=== PATIENT | female | born 1945 | race Caucasian/White ===

== ENCOUNTER 2016-08-25 11:33 | Inpatient (IN) | payer MEDICARE ==
[2016-08-25] VITALS (9 sets, daily range): BP systolic 111–167; BP diastolic 59–93; PULSE 94–102; RESP 16–24; TEMP 98.1–98.6; O2SAT 89–98
[~2016-08-25] VITALS: Ht 170.2 cm; Wt 87.1 kg
[~2016-08-25 11:33] MED LIST: SYMB160A INH
--- NOTE | 2016-08-25 12:12 | PD ---
HPI Chief Complaint: Fever Time Seen by Provider: 12:07 Travel History International Travel<30 days: No Contact w/Intl Traveler<30days: No Traveled to known affect area: No History of Present Illness HPI 71-year-old female presents with cough and congestion and general ill feeling intermittently since May. Dr. richardson did a sputum culture and she got results that staph was present so she was placed on Bactrim. She had an allergic reaction with a rash so she was switched to ciprofloxacin. She just started ciprofloxacin yesterday and has had 3 doses. She states that today she spiked a fever of 102 so she called the webbing inspector assembler and tester electronics who advised her to come to the emergency room. She states that she's feeling worse. She states no other concurrent complaints. She states she feels worse when she moves around. She denies other modifying factors. She states her most recent acute illness has been ever since she went to the doctor on Saturday. She denies increased use in her inhaler for her asthma. She states she follows with Dr. richardson because of the intermittent colds and her asthma. PFSH Past Medical History Narrative Medical mast cell disorder COPD: Yes Past Surgical History Tonsillectomy: Yes Other Surgery: Yes (hernia, laminectomy l2-s1) Social History Alcohol Use: Yes (occ wine) Tobacco Use: No (quit mulitple years ago) Substance Use: No Allergies-Medications (Allergen,Severity, Reaction): Coded Allergies: No Known Allergies (Unverified , 08/25/16) Reported Meds & Prescriptions Reported Meds & Active Scripts Active Reported Valtrex (Valacyclovir HCl) 1 Gm Tab 2,000 Mg PO BID Symbicort Inh (Budesonide/Formoterol Fumarate) 160-4.5 Mcg/Act Aero 1 Puff INH Q12HR Coq-10 (Coenzyme Q10 (Ubidecarenone)) Unknown Strength Cap Unknown Dose Aspirin 81 Mg Tabdr 81 Mg PO DAILY Cipro (Ciprofloxacin HCl) Unknown Strength Tab 500 PO BID Zetia (Ezetimibe) 10 Mg Tab 20 Mg PO DAILY Hydrocodone-Acetaminophen 5-325 mg Tab 1 Tab PO Q4H PRN Review of Systems Except as stated in HPI: all other systems reviewed are Neg Physical Exam Narrative GENERAL: Well-nourished, well-developed patient. SKIN: Warm and dry. HEAD: Normocephalic and atraumatic. EYES: No injection or drainage. ENT: No nasal drainage noted. NECK: Supple, trachea midline. CARDIOVASCULAR: Regular rate and rhythm RESPIRATORY: Decreased aeration bilaterally. No accessory muscle use. EXTREMITIES: No edema. NEUROLOGICAL: Awake and alert. Motor and sensory grossly within normal limits. Normal speech. Data Data Last Documented VS Vital Signs Date Time Temp Pulse Resp B/P Pulse Ox O2 Delivery O2 Flow Rate FiO2 08/25/16 12:44 94 Nasal Cannula 2.00 08/25/16 12:00 96 22 130/76 08/25/16 11:35 98.1 89 on room air Orders Complete Blood Count With Diff (08/25/16 11:54) Comprehensive Metabolic Panel (08/25/16 11:54) Prothrombin Time / Inr (Pt) (08/25/16 11:54) Act Partial Throm Time (Ptt) (08/25/16 11:54) Lactic Acid Sepsis Protocol (08/25/16 11:54) Magnesium (Mg) (08/25/16 11:54) Phosphorus (Po4) (08/25/16 11:54) Urinalysis - C+S If Indicated (08/25/16 11:54) Influenzae A/B Antigen (08/25/16 11:54) Blood Culture (08/25/16 11:54) Chest, Pa & Lat (08/25/16 11:54) Ecg Monitoring (08/25/16 11:54) Iv Access Insert/Monitor (08/25/16 11:54) Oximetry (08/25/16 11:54) Methylprednisolone So Succ Inj (Solumedr (08/25/16 12:15) Albuterol-Ipratropium Neb (Duoneb Neb) (08/25/16 12:15) Sodium Chlorid 0.9% 500 Ml Inj (Ns 500 M (08/25/16 12:30) Ceftriaxone Inj (Rocephin Inj) (08/25/16 12:45) Azithromycin Inj (Zithromax Inj) (08/25/16 12:45) Vancomycin Inj (Vancomycin Inj) (08/25/16 12:45) Albuterol-Ipratropium Neb (Duoneb Neb) (08/25/16 13:00) Oseltamivir (Tamiflu) (08/25/16 13:30) Sputum Culture And Gram Stain (08/25/16 13:20) Admit Order (Ed Use Only) (08/25/16 13:22) Sodium Chlor 0.9% 1000 Ml Inj (Ns 1000 M (08/25/16 13:22) Sodium Chloride 0.9% Flush (Ns Flush) (08/25/16 13:30) Sodium Chloride 0.9% Flush (Ns Flush) (08/25/16 21:00) Ceftriaxone Inj (Rocephin Inj) (08/25/16 13:30) Azithromycin Inj (Zithromax Inj) (08/25/16 13:30) Vancomycin Inj (Vancomycin Inj) (08/25/16 13:30) Oseltamivir (Tamiflu) (08/25/16 13:30) Albuterol-Ipratropium Neb (Duoneb Neb) (08/25/16 16:00) Albuterol-Ipratropium Neb (Duoneb Neb) (08/25/16 13:30) Methylprednisolone So Succ Inj (Solumedr (08/25/16 13:30) Admit To Inpatient (08/25/16 ) Vital Signs (Adult) Q4H (08/25/16 13:22) Activity Oob With Assistance PRN (08/25/16 13:22) ^ Notify Parameters (08/25/16 13:22) Intake + Output Q8H (08/25/16 13:22) ^ Smoking Cessation Counseling (08/25/16 13:22) Diet Heart Healthy (08/25/16 Lunch) Basic Metabolic Panel (Bmp) (08/26/16 06:00) Consult Pulmonology (08/25/16 ) Heparin Inj (Heparin Inj) (08/25/16 13:30) Inpatient Certification (08/25/16 ) Aspirin Ec (Ecotrin Ec) (08/26/16 09:00) Budeson-Formot 160-4.5 Mg Inh (Symbicort (08/25/16 21:00) Ezetimibe (Zetia) (08/26/16 09:00) Acetamin-Hydrocod 325-5 Mg ([place] 5-325 (08/25/16 13:30) Valacyclovir (Valtrex) (08/25/16 21:00) Labs Laboratory Tests Test 08/25/16 12:00 White Blood Count 4.7 TH/MM3 Red Blood Count 4.51 MIL/MM3 Hemoglobin 13.9 GM/DL Hematocrit 40.7 % Mean Corpuscular Volume 90.2 FL Mean Corpuscular Hemoglobin 30.8 PG Mean Corpuscular Hemoglobin 34.1 % Concent Red Cell Distribution Width 13.8 % Platelet Count 147 TH/MM3 Mean Platelet Volume 8.3 FL Neutrophils (%) (Auto) 75.0 % Lymphocytes (%) (Auto) 11.4 % Monocytes (%) (Auto) 11.5 % Eosinophils (%) (Auto) 1.3 % Basophils (%) (Auto) 0.8 % Neutrophils # (Auto) 3.6 TH/MM3 Lymphocytes # (Auto) 0.5 TH/MM3 Monocytes # (Auto) 0.5 TH/MM3 Eosinophils # (Auto) 0.1 TH/MM3 Basophils # (Auto) 0.0 TH/MM3 CBC Comment DIFF FINAL Differential Comment Prothrombin Time 10.2 SEC Prothromb Time International 0.9 RATIO Ratio Activated Partial 30.9 SEC Thromboplast Time Sodium Level 137 MEQ/L Potassium Level 3.7 MEQ/L Chloride Level 106 MEQ/L Carbon Dioxide Level 23.8 MEQ/L Anion Gap 7 MEQ/L Blood Urea Nitrogen 10 MG/DL Creatinine 0.81 MG/DL Estimat Glomerular Filtration 70 ML/MIN Rate Random Glucose 99 MG/DL Lactic Acid Level 1.0 mmol/L Calcium Level 8.4 MG/DL Phosphorus Level 2.7 MG/DL Magnesium Level 2.4 MG/DL Total Bilirubin 0.5 MG/DL Aspartate Amino Transf 40 U/L (AST/SGOT) Alanine Aminotransferase 58 U/L (ALT/SGPT) Alkaline Phosphatase 68 U/L Total Protein 7.9 GM/DL Albumin 3.9 GM/DL [facility] Medical Decision Making Medical Screen Exam Complete: Yes Emergency Medical Condition: Yes Medical Record Reviewed: Yes (past history confirm, prior PFTs reviewed) Interpretation(s) CBC & BMP Diagram 08/25/16 12:00 Last 24 hours Impressions Chest X-Ray 08/25/16 0244 Signed Impressions: Service Date/Time: Thursday, August 25, 2016 12:34 - CONCLUSION: Mild left base atelectasis. Darrel Fernandez MD Given recent fever left base is likely beginnings of pneumonia Differential Diagnosis COPD exacerbation, renal failure, pneumonia, URI, sepsis Narrative Course Will check blood work, chest x-ray, influenza and dose with DuoNeb's, Solu- Medrol and IV fluid hydration and reevaluate On recheck with improved aeration Will repeat neb for wheezing and admit to the hospital for further care. Patient updated and agrees to plan of care flu is A+, will add tamiflu to meds Physician Communication Physician Communication dr david agrees to admit Diagnosis Primary Impression: COPD exacerbation Additional Impression: Influenza A Admitting Information Admitting Physician Requests: Admit Stephanie Bravo MD Aug 25, 2016 12:12
[2016-08-25] MEDS ORDERED: methylPREDNISolone SOD SUCC 125 MG/2 ML VIAL IVP ONE (12:15)
[2016-08-25] MEDS ORDERED: ZETI10TA5 PO (12:18)
[2016-08-25] MEDS ORDERED: CIPR250T52 PO (12:18)
[2016-08-25] MEDS ORDERED: COQ-30CA2 (12:19)
[2016-08-25] MEDS ORDERED: ASPI1TAB69 PO (12:19)
[2016-08-25 12:28] LABS: AUTOMATED NEUTROPHIL # 3.6 TH/MM3 (1.8-7.7); BASOPHIL % 0.8 % (0.0-2.0); EOSINOPHIL # 0.1 TH/MM3 (0-0.4); EOSINOPHIL % 1.3 % (0.0-4.0); HEMATOCRIT 40.7 % (35.0-46.0); HEMO FLAGS DIFF FINAL; LYMPH % 11.4 % (9.0-44.0); LYMPHOCYTE # 0.5 TH/MM3 (1.0-4.8); MEAN CELL VOLUME 90.2 FL (80.0-100.0); MEAN CORPUSCULAR HEMOGLOBIN 30.8 PG (27.0-34.0); MEAN CORPUSCULAR HGB CONC 34.1 % (32.0-36.0); MONO % 11.5 % (0.0-8.0); PLATELET COUNT 147 TH/MM3 (150-450); RED BLOOD COUNT 4.51 MIL/MM3 (4.00-5.30); RED CELL DISTRIBUTION WIDTH 13.8 % (11.6-17.2); WHITE BLOOD COUNT 4.7 TH/MM3 (4.0-11.0)
[2016-08-25] MEDS ORDERED: SODIUM CHLORID 0.9% 500 ML INJ 500 ML IV ONE (12:30)
[2016-08-25] MEDS ORDERED: SYMB160A INH (12:31)
[2016-08-25] MEDS ORDERED: VALT1TAB PO (12:31)
[2016-08-25] MEDS ORDERED: HYDR-3516 PO (12:32)
[2016-08-25 12:37] LABS: APTT (PATIENT) 30.9 SEC (24.3-30.1); INTERNATIONAL NORMALIZED RATIO 0.9 RATIO; PROTHROMBIN TIME - PATIENT 10.2 SEC (9.8-11.6)
[2016-08-25] MEDS: RESP: ALBUTEROL 2.5 MG/IPRATROPIUM 0.5 MG NEB (SCH) INH ×4 (12:40→21:02)
[2016-08-25] MEDS ORDERED: cefTRIAXone INJ 1,000 MG in SODIUM CHLORIDE 0.9% INJ 100 ML IV ONE (12:45)
[2016-08-25] MEDS ORDERED: VANCOMYCIN INJ 1,000 MG in SODIUM CHLOR 0.9% 250 ML INJ 250 ML IV ONE ×2 (12:45→13:30)
[2016-08-25] MEDS ORDERED: AZITHROMYCIN INJ 500 MG in SODIUM CHLOR 0.9% 250 ML INJ 250 ML IV ONE (12:45)
[2016-08-25 12:48] LABS: ANION GAP 7 MEQ/L (5-15); AST (GOT) 40 U/L (15-37); BICARBONATE 23.8 MEQ/L (21.0-32.0); BLOOD UREA NITROGEN 10 MG/DL (7-18); CHLORIDE 106 MEQ/L (98-107); GLOMERULAR FILTRATION RATE 70 ML/MIN (>89); MAGNESIUM 2.4 MG/DL (1.5-2.5); POTASSIUM 3.7 MEQ/L (3.5-5.1); SODIUM (NA) 137 MEQ/L (136-145)
[2016-08-25 12:51] LABS: ALKALINE PHOSPHATASE 68 U/L (45-117); ALT (GPT) 58 U/L (10-53); TOTAL BILIRUBIN ADULT 0.5 MG/DL (0.2-1.0)
--- NOTE | 2016-08-25 12:57 | RADRPT ---
EXAM DATE/TIME: 08/25/2016 12:34 [facility] COMPARISON: No previous studies available for comparison. INDICATIONS : Cough MEDICAL HISTORY : Chronic obstructive pulmonary disease. Asthma SURGICAL HISTORY : Tonsillectomy. ENCOUNTER: Initial ACUITY: 1 day PAIN SCORE: 9/10 LOCATION: Bilateral chest FINDINGS: There is mild left base atelectasis. Right lung clear. No pleural effusion or pneumothorax on either side. Heart size within normal limits. CONCLUSION: Mild left base atelectasis. Darrel Fernandez MD on August 25, 2016 at 12:55 Board Certified Radiologist. This report was verified electronically.
[2016-08-25] MEDS ORDERED: RESP: ALBUTEROL 2.5 MG/IPRATROPIUM 0.5 MG NEB (SCH) NEB ONE (13:00)
[2016-08-25] MEDS ORDERED: SODIUM CHLORIDE 0.9% FLUSH 5 ML FLUSH IV FLUSH PRN (13:30)
[2016-08-25] MEDS ORDERED: RESP: ALBUTEROL 2.5 MG/IPRATROPIUM 0.5 MG NEB (PRN) INH (13:30)
[2016-08-25] MEDS ORDERED: OSELTAMIVIR PHOSPHATE 75 MG CAP PO ONE (13:30)
[2016-08-25] MEDS: SODIUM CHLOR 0.9% 1000 ML INJ 1,000 ML IV SCH ×2 (13:52→23:32)
--- NOTE | 2016-08-25 14:02 | HHI.HP ---
HPI Service [facility] Primary Care Physician Lanre Naidu MD Admission Diagnosis copd exacerbation, influenza A Diagnoses: Chief Complaint: sob, cough ([place] De La Vega) Travel History International Travel<30 Days: No Contact w/Intl Traveler <30 Da: No Traveled to Known Affected Are: No ([place] De La Vega) History of Present Illness This a 71-year-old female with history of mast cell disorder, fatty liver, mixed connective tissue disorder, COPD. Patient presented to the emergency room with complaints of ongoing cough and congestion and respiratory infection that has been treated since May 2016. According to the patient she started feeling in May, has been on 2-3 different antibiotics as well as oral steroids. She went to see her operations technician Dr. Church who did a sputum culture and results showed that she was growing staph therefore she was placed on Bactrim. Apparently she had some type of reaction that was in the form of a rash so she was switched to Cipro. She had 3 doses of the medication up to now. Indicates that yesterday she spiked a fever up to 102, she's had a headache, chills. She's has a cough but very little sputum. She called her operations technician who instructed her to come to the emergency room. Patient plays of generalized body aches, no chest pain, no diarrhea, no abdominal pain. She has been taking probiotics. She's not on any oxygen at home, uses inhalers. Patient presented to the emergency room, laboratory workup was completed, unremarkable. She was noted slightly tachycardic, no fever. Blood pressure stable. Sats were 89% on room air. Cultures were obtained, patient was noted positive for influenza type A. She was started on empiric antibiotics. She was given DuoNeb's and Solu-Medrol. IV fluids have been started. Patient is admitted for further evaluation and treatment ([place]ia De La Vega) Review of Systems Constitutional: COMPLAINS OF: Fatigue, Fever, Chills, DENIES: Diaphoretic episodes, Weight gain, Weight loss, Dizziness, Change in appetite, Night Sweats Endocrine: DENIES: Abnorml menstrual pattern, Heat/cold intolerance, Polydipsia , Polyuria, Polyphagia Eyes: DENIES: Blurred vision, Diplopia, Eye inflammation, Eye pain, Vision loss , Photosensitivity, Double Vision Ears, nose, mouth, throat: DENIES: Tinnitus, Hearing loss, Vertigo, Nasal discharge, Oral lesions, Throat pain, Hoarseness, Ear Pain, Running Nose, Epistaxis, Sinus Pain, Toothache, Odynophagia Respiratory: COMPLAINS OF: Cough, Wheezing, Sputum production, Shortness of breath, DENIES: Apneas, Snoring, Hemoptysis Cardiovascular: DENIES: Chest pain, Palpitations, Syncope, Dyspnea on Exertion , PND, Lower Extremity Edema, Orthopnea, Claudication Gastrointestinal: DENIES: Abdominal pain, Black stools, Bloody stools, Constipation, Diarrhea, Nausea, Vomiting, Difficulty Swallowing, Anorexia Genitourinary: DENIES: Abnormal vaginal bleeding, Dysmenorrhea, Dyspareunia, Sexual dysfunction, Urinary frequency, Urinary incontinence, Urgency, Hematuria , Dysuria, Nocturia, Vaginal discharge Musculoskeletal: DENIES: Joint pain, Muscle aches, Stiffness, Joint Swelling, Back pain, Neck pain Integumentary: COMPLAINS OF: Rash (herpes lesions on lips), DENIES: Abnormal pigmentation, Pruritus, Nail changes, Breast masses, Breast skin changes, Nipple discharge Hematologic/lymphatic: DENIES: Bruising, Lymphadenopathy Immunologic/allergic: DENIES: Eczema, Urticaria Neurologic: DENIES: Abnormal gait, Headache, Localized weakness, Paresthesias, Seizures, Speech Problems, Tremor, Poor Balance Psychiatric: DENIES: Anxiety, Confusion, Mood changes, Depression, Hallucinations, Agitation, Suicidal Ideation, Homicidal Ideation, Delusions ( [place] De La Vega) Past Family Social History Past Medical History COPD not oxygen dependent Asthma Connective tissue disorder Fatty liver, elevated liver enzymes mast cell disorder, follows up with specialist at [facility] Previous bone marrow biopsy Has had cardiac workup, had stress tests, has mild coronary artery disease. Roll Inspector is Dr. Aime Anguiano Past Surgical History Hernia Laminectomy L2 to S1 Bone marrow biopsy Stress test Reported Medications Reported Meds & Active Scripts Active Reported Valtrex (Valacyclovir HCl) 1 Gm Tab 2,000 Mg PO BID Symbicort Inh (Budesonide/Formoterol Fumarate) 160-4.5 Mcg/Act Aero 1 Puff INH Q12HR Coq-10 (Coenzyme Q10 (Ubidecarenone)) Unknown Strength Cap Unknown Dose Aspirin 81 Mg Tabdr 81 Mg PO DAILY Cipro (Ciprofloxacin HCl) Unknown Strength Tab 500 PO BID Zetia (Ezetimibe) 10 Mg Tab 20 Mg PO DAILY Hydrocodone-Acetaminophen 5-325 mg Tab 1 Tab PO Q4H PRN ([place] De [place] Vega) Allergies: Coded Allergies: Bactrim (Verified Allergy, Mild, Rash, 08/25/16) Codeine (Verified Allergy, Mild, Itching, 08/25/16) Macrobid (Verified Allergy, Mild, Nausea/Vomiting, 08/25/16) vomiting Active Ordered Medications Inpatient Medications Acetaminophen/ Hydrocodone Bitart (Dante 5-325 Mg) 1 tab Q4H PRN PO PAIN; Start 08/25/16 at 13:30; Status UNV Albuterol/ Ipratropium (Duoneb Neb) 1 ampule Q4HR NEB PRN INH SHORTNESS OF BREATH; Start 08/25/16 at 13:30 Albuterol/ Ipratropium 1 ampule 1 ampule Q15M INH Last administered on t 12:41; Start 08/25/16 at 12:15; Stop 08/25/16 at 12:31; Status DC Aspirin (Ecotrin Ec) 81 mg DAILY PO ; Start 08/26/16 at 09:00 Azithromycin 500 mg/Sodium Chloride 250 ml @ 250 mls/hr Q24H IV ; Start at 13:30; Status UNV Azithromycin/ Sodium Chloride (Zithromax Inj/ NS 250 ml Inj) 250 ml @ 250 mls/ hr ONCE ONCE IV ; Start 08/25/16 at 12:45; Stop 08/25/16 at 13:44; Status DC Budesonide/ Formoterol Fumarate (Symbicort 160-4.5 Inh) 1 puff Q12HR INH ; Start 08/25/16 at 21:00 Ceftriaxone Sodium 1000 mg/ Sodium Chloride 100 ml @ 200 mls/hr Q24H IV ; Start 08/26/16 at 13:00 EZETIMIBE (Zetia) 20 mg DAILY PO ; Start 08/26/16 at 09:00 Heparin Sodium (Porcine) (Heparin Inj) 5,000 units Q12H SQ ; Start 08/25/16 at 14:00 IV Flush (NS Flush) 2 ml UNSCH PRN IV FLUSH FLUSH AFTER USING IV ACCESS; Start 08/25/16 at 13:30 IV Flush 2 ml 2 ml BID IV FLUSH ; Start 08/25/16 at 21:00 Methylprednisolone Sodium Succinate (SoluMEDROL INJ) 40 mg Q12H IV ; Start 08/26 at 00:00 Oseltamivir Phosphate (Tamiflu) 75 mg DAILY PO ; Start 08/25/16 at 13:30; Stop 09/03/16 at 09:01; Status UNV Oseltamivir Phosphate 75 mg 75 mg ONCE ONCE PO ; Start 08/25/16 at 13:30; Stop 08/25/16 at 13:31; Status DC Sodium Chloride (NS 1000 ml Inj) 1,000 ml @ 100 mls/hr Q10H IV Last administered on 08/25/16t 13:52; Start 08/25/16 at 13:22 Valacyclovir HCl (Valtrex) 2,000 mg BID PO ; Start 08/25/16 at 21:00; Stop 08/25 at 21:00; Status DC Vancomycin HCl/ Sodium Chloride (Vancomycin Inj/ NS 250 ml Inj) 250 ml @ 250 mls/hr ONCE ONCE IV ; Start 08/25/16 at 13:30; Stop 08/25/16 at 14:29; Status UNV Family History Mother had first heart attack at age 56, at age 69 from CHF Father she doesn't know about medical history Has 2 brothers, one brother at age 58 from heart attack Another brother had heart attack at age 62 Social History Patient is , lives at home with . Has grown children. Quit smoking 20 years ago, smoked for 25 years one pack a day. Rare alcohol use. No substance abuse. Very active and exercises daily. ([place]ia De La Vega) Physical Exam Vital Signs Vital Signs Date Time Temp Pulse Resp B/P Pulse Ox O2 Delivery O2 Flow Rate FiO2 08/25/16 12:44 94 Nasal Cannula 2.00 08/25/16 12:00 96 22 130/76 89 Room Air 08/25/16 11:55 22 89 Room Air 08/25/16 11:53 16 98 Room Air 08/25/16 11:35 98.1 100 17 167/93 91 Physical Exam GENERAL: This is a well-nourished, well-developed patient, in no apparent distress. SKIN: No rashes, ecchymoses or lesions. Cool and dry. Dry scab on lip HEAD: Atraumatic. Normocephalic. No temporal or scalp tenderness. EYES: Pupils equal round and reactive. Extraocular motions intact. No scleral icterus. No injection or drainage. ENT: Nose without bleeding, purulent drainage or septal hematoma. Throat without erythema, tonsillar hypertrophy or exudate. Uvula midline. Airway patent. NECK: Trachea midline. No JVD or lymphadenopathy. Supple, nontender, no meningeal signs. CARDIOVASCULAR: Regular rate and rhythm without murmurs, gallops, or rubs. RESPIRATORY: Patient noted with faint scattered ronchi, expiratory wheezes GASTROINTESTINAL: Abdomen soft, non-tender, nondistended. No hepato-splenomegaly , or palpable masses. No guarding. MUSCULOSKELETAL: Extremities without clubbing, cyanosis, or edema. No joint tenderness, effusion, or edema noted. No calf tenderness. Negative Homans sign bilaterally. NEUROLOGICAL: Awake and alert. Cranial nerves II through XII intact. Motor and sensory grossly within normal limits. Five out of 5 muscle strength in all muscle groups. Normal speech. Laboratory Laboratory Tests Test 08/25/16 12:00 White Blood Count 4.7 Red Blood Count 4.51 Hemoglobin 13.9 Hematocrit 40.7 Mean Corpuscular Volume 90.2 Mean Corpuscular Hemoglobin 30.8 Mean Corpuscular Hemoglobin 34.1 Concent Red Cell Distribution Width 13.8 Platelet Count 147 Mean Platelet Volume 8.3 Neutrophils (%) (Auto) 75.0 Lymphocytes (%) (Auto) 11.4 Monocytes (%) (Auto) 11.5 Eosinophils (%) (Auto) 1.3 Basophils (%) (Auto) 0.8 Neutrophils # (Auto) 3.6 Lymphocytes # (Auto) 0.5 Monocytes # (Auto) 0.5 Eosinophils # (Auto) 0.1 Basophils # (Auto) 0.0 CBC Comment DIFF FINAL Differential Comment Prothrombin Time 10.2 Prothromb Time International 0.9 Ratio Activated Partial 30.9 Thromboplast Time Sodium Level 137 Potassium Level 3.7 Chloride Level 106 Carbon Dioxide Level 23.8 Anion Gap 7 Blood Urea Nitrogen 10 Creatinine 0.81 Estimat Glomerular Filtration 70 Rate Random Glucose 99 Lactic Acid Level 1.0 Calcium Level 8.4 Phosphorus Level 2.7 Magnesium Level 2.4 Total Bilirubin 0.5 Aspartate Amino Transf 40 (AST/SGOT) Alanine Aminotransferase 58 (ALT/SGPT) Alkaline Phosphatase 68 Total Protein 7.9 Albumin 3.9 Date/Time Procedure Status Source Growth 08/25/16 12:00 Aerobic Blood Culture Received Blood Peripheral Pending 08/25/16 12:00 Anaerobic Blood Culture Received Blood Peripheral Pending 08/25/16 11:50 Influenza Types A,B Antigen (JAIMEE) - Final Complete Nasal Aspirate Positive For Flu A Antigen ([place] De [place] Vega) Result Diagram: 08/25/16 1200 08/25/16 1200 Imaging Last Impressions Chest X-Ray 08/25/16 1154 Signed Impressions: Service Date/Time: Saturday, August 25, 2016 12:34 - CONCLUSION: Mild left base atelectasis. Darrel Fernandez MD ([place]) Assessment and Plan Problem List: (1) COPD exacerbation (2) Influenza A (3) Fatty liver (4) Mast cell disease (5) Hypoxia (6) Failure of outpatient treatment (7) Hx of connective tissue disease Assessment and Plan Admit to Dr. Toro 71-year-old female admitted with ongoing cough and congestion, has had respiratory infection since May. Recently put on Cipro. Admitted with new PD exacerbation, influenza, failure of outpatient therapy -Continue with empiric antibiotics, continue with Tamiflu -Follow cultures -Obtain sputum culture Consult pulmonology for evaluation -Continue with DuoNeb's Solu-Medrol 40 mg IV twice a day -Continue with Symbicort -Continue with IV fluids History of mast cell disorder Monitor for any allergic reaction Benadryl when necessary History of fatty liver, noted with mildly elevated liver enzymes -Repeat LFTs in the morning Home medications reviewed, initiated as indicated SCDs for DVT prophylaxis Plan of care discussed with the patient, attending and registered nurse. Further management of the patient will be dependent on the hospital course This patient was seen by myself and Dr. Toro, this H&P is written on his behalf ([place] De La Vega) Assessment and Plan Pt aeen and examined in detail as above chart was reviewed dw pt and at bedside dw ecommerce merchandising manager about plan of care (Erick Toro MD) Physician Certification 2 Midnight Certification Type: Admission for Inpatient Services Order for Inpatient Services The services are ordered in accordance with Medicare regulations or non- Medicare payer requirements, as applicable. In the case of services not specified as inpatient-only, they are appropriately provided as inpatient services in accordance with the 2-midnight benchmark. Estimated LOS (days): 2 2 days is the estimated time the patient will need to remain in the hospital, assuming treatment plan goals are met and no additional complications. Post-Hospital Plan: Home ([place]ia De La Vega) [place] De La Vega Aug 25, 2016 14:02 Erick Toro MD Aug 25, 2016 21:39
[2016-08-25] MEDS: HEPARIN SODIUM - SQ 10,000 UNITS/ML VIAL SQ SCH (14:25)
[2016-08-25] MEDS: ACETAMINOPHEN/HYDROcodone 325 MG/5 MG TAB PO PRN ×2 (14:52→20:56)
[2016-08-25] MEDS ORDERED: OSELTAMIVIR PHOSPHATE 75 MG CAP PO SCH (15:00)
--- NOTE | 2016-08-25 16:33 | MB ---
cc: KRISTIE FLOWERS M.D., R. STEVEN M.D. DATE OF CONSULTATION: 08/25/2016. REASON FOR CONSULTATION: COPD exacerbation. HISTORY OF PRESENT ILLNESS: Mrs. Becerra is a 71-year-old female with known history of COPD who had developed an exacerbation with cough and expectoration of whitish-yellow sputum last week and was given Bactrim therapy for which she had developed a rash and was switched to Levaquin therapy. Her says she has been feeling weak with fever up to 102 degrees Fahrenheit. She came to the emergency room and it was felt to be exacerbation of her COPD. Bronchodilator therapy has been initiated with some improvement. The patient is admitted to the hospital for same. PAST MEDICAL HISTORY: 1. COPD. SOCIAL HISTORY: Remote smoking history. No TB or industrial exposure. Drinks socially. FAMILY HISTORY: Noncontributory. REVIEW OF SYSTEMS: A twelve-point review of systems is as per the history of present illness and past history, otherwise negative. MEDICATIONS: 1. Valacyclovir. 2. Symbicort. 3. Co-Q-10. 4. Aspirin. 5. Zetia. 6. Cipro recently which she stopped. ALLERGIES: 1. CIPRO. 2. BACTRIM. FAMILY HISTORY: Noncontributory. PHYSICAL EXAMINATION: VITAL SIGNS: On exam, temperature 102 degrees Fahrenheit, pulse 80, respirations 16, blood pressure 140/70, 02 saturation 94% on room air. HEAD, EYES, EARS, NOSE, THROAT: Unremarkable. Eyes without icterus. NECK: Without adenopathy, thyroid enlargement, central trachea. CHEST: No dullness to percussion. A few scattered rhonchi on auscultation. CARDIAC: PMI distant. S1 and S2 audible. No murmur, no rub. ABDOMEN: Lax. Bowel sounds audible. EXTREMITIES: No cyanosis, clubbing or edema. SKIN: Normal. LYMPHATIC: No lymphadenopathy. LABORATORY DATA: White count 4.7, hemoglobin 13, hematocrit 40, platelets 147,000. Sodium 137, potassium 3.7, BUN 10, creatinine 0.8. INR 0.9. IMPRESSION: Exacerbation of COPD. PLAN: 1. The patient will be maintained on oxygen therapy. 2. Bronchodilator therapy. 3. Antibiotic therapy. 4. She has been started on Zithromax and ceftriaxone. 5. Continue bronchodilator therapy via nebulizations. 6. Albuterol and ipratropium. I will follow her course closely and depending on progress proceed further. I do thank you for asking me to partake in Mrs. Becerra's care. Kristie Flowers MD WWW/HERMAN /3:16 PM /4:27 PM
[2016-08-25 16:49] LABS: BLOOD, URINE NEG (NEG); GLUCOSE,URINE NEG (NEG); HYALINE CAST, URINE 1 /lpf (RARE); KETONE, URINE TRACE mg/dL (NEG); MUCUS URINE FEW /lpf (OCC); NITRITE,URINE NEG (NEG); PH, URINE 5.5 (5.0-8.5); SQUAMOUS EPITHELIAL CELL URINE 1 /hpf (0-5); URINE COLOR YELLOW (YELLW/STRAW)
[2016-08-25 16:50] LABS: COMMENT (UR) CATH-CULT NOT IND; CULTURE IF INDICATED CATH CULTURE NOT IND
[2016-08-25] MEDS: ONDANSETRON HCL 4 MG/2 ML VIAL IV PUSH PRN (17:36)
[2016-08-25] MEDS: NAPROXEN 250 MG TAB PO PRN (17:37)
[2016-08-25] MEDS: BUDESONIDE-FORMOTEROL 160/4.5 MCG INHALER INH SCH (20:55)
[2016-08-25] MEDS: SODIUM CHLORIDE 0.9% FLUSH 5 ML FLUSH IV FLUSH SCH (20:55)
[2016-08-25] MEDS ORDERED: valACYclovir HCL 500 MG TAB PO SCH (21:00)
[2016-08-25] MEDS: methylPREDNISolone SOD SUCC 40 MG/1 ML VIAL IV SCH (23:32)
[2016-08-26] VITALS (8 sets, daily range): BP systolic 106–139; BP diastolic 59–85; PULSE 77–93; RESP 18–22; TEMP 96.1–98.9; O2SAT 93–96
[2016-08-26] MEDS: HEPARIN SODIUM - SQ 10,000 UNITS/ML VIAL SQ SCH ×2 (02:26→14:21)
[2016-08-26] MEDS: ACETAMINOPHEN/HYDROcodone 325 MG/5 MG TAB PO PRN (02:29)
[2016-08-26] MEDS: RESP: ALBUTEROL 2.5 MG/IPRATROPIUM 0.5 MG NEB (SCH) INH ×4 (03:57→21:28)
[2016-08-26 06:23] LABS: BICARBONATE 22.1 MEQ/L (21.0-32.0); POTASSIUM 3.6 MEQ/L (3.5-5.1)
[2016-08-26 06:25] LABS: INDIRECT BILIRUBIN 0.2 MG/DL (0.0-0.8); TOTAL BILIRUBIN ADULT 0.3 MG/DL (0.2-1.0)
[2016-08-26] MEDS: ASPIRIN EC 81 MG TABEC PO SCH (08:20)
[2016-08-26] MEDS: EZETIMIBE 10 MG TAB PO SCH (08:20)
[2016-08-26] MEDS: BUDESONIDE-FORMOTEROL 160/4.5 MCG INHALER INH SCH ×2 (08:20→19:26)
[2016-08-26] MEDS: SODIUM CHLORIDE 0.9% FLUSH 5 ML FLUSH IV FLUSH SCH ×2 (08:21→19:26)
[2016-08-26] MEDS: SODIUM CHLOR 0.9% 1000 ML INJ 1,000 ML IV SCH ×2 (08:22→19:26)
--- NOTE | 2016-08-26 11:02 | HHI.PR ---
Subjective Remarks She still has some wheezing and some shortness of breath Some cough with very small amount of sputum No chest pain or diaphoresis No nausea vomiting Feeling some improvement from yesterday Review of system for 10 point system otherwise unremarkable Objective Objective Results - Vital Signs Date Time Temp Pulse Resp B/P Pulse Ox O2 Delivery O2 Flow Rate FiO2 08/26/16 08:46 95 Nasal Cannula 1.00 08/26/16 08:00 96.1 77 18 131/61 94 08/26/16 03:59 95 Nasal Cannula 2.00 08/26/16 00:00 98.9 93 22 106/59 93 08/25/16 20:00 98.6 99 24 138/76 95 08/25/16 17:47 95 Nasal Cannula 2.00 08/25/16 16:00 98.1 96 20 125/73 95 08/25/16 15:00 98.5 94 16 111/59 94 Nasal Cannula 2 08/25/16 14:00 102 16 145/72 98 Room Air 08/25/16 12:44 94 Nasal Cannula 2.00 08/25/16 12:00 96 22 130/76 89 Room Air 08/25/16 11:55 22 89 Room Air 08/25/16 11:53 16 98 Room Air 08/25/16 11:35 98.1 100 17 167/93 91 I/O 08/25/16 08/25/16 08/25/16 08/26/16 08/26/16 08/26/16 07:00 15:00 23:00 07:00 15:00 23:00 Intake Total 1286 ml 1077 ml Output Total 1600 ml 1600 ml Balance -314 ml -523 ml Intake Oral 480 ml 320 ml IV Total 806 ml 757 ml Output Urine Total 1600 ml 1600 ml # Bowel Movements 0 0 Result Diagram: 08/25/16 1200 08/26/16 0505 Imaging Last Impressions Chest X-Ray 08/25/16 1154 Signed Impressions: Service Date/Time: Thursday, August 25, 2016 12:34 - CONCLUSION: Mild left base atelectasis. Darrel Fernandez MD Other Results Laboratory Tests Test 08/25/16 08/25/16 08/26/16 12:00 16:15 05:05 White Blood Count 4.7 Red Blood Count 4.51 Hemoglobin 13.9 Hematocrit 40.7 Mean Corpuscular Volume 90.2 Mean Corpuscular Hemoglobin 30.8 Mean Corpuscular Hemoglobin 34.1 Concent Red Cell Distribution Width 13.8 Platelet Count 147 Mean Platelet Volume 8.3 Neutrophils (%) (Auto) 75.0 Lymphocytes (%) (Auto) 11.4 Monocytes (%) (Auto) 11.5 Eosinophils (%) (Auto) 1.3 Basophils (%) (Auto) 0.8 Neutrophils # (Auto) 3.6 Lymphocytes # (Auto) 0.5 Monocytes # (Auto) 0.5 Eosinophils # (Auto) 0.1 Basophils # (Auto) 0.0 CBC Comment DIFF FINAL Differential Comment Prothrombin Time 10.2 Prothromb Time International 0.9 Ratio Activated Partial 30.9 Thromboplast Time Sodium Level 137 143 Potassium Level 3.7 3.6 Chloride Level 106 111 Carbon Dioxide Level 23.8 22.1 Anion Gap 7 10 Blood Urea Nitrogen 10 8 Creatinine 0.81 0.85 Estimat Glomerular Filtration 70 66 Rate Random Glucose 99 155 Lactic Acid Level 1.0 Calcium Level 8.4 8.6 Phosphorus Level 2.7 Magnesium Level 2.4 Total Bilirubin 0.5 0.3 Aspartate Amino Transf 40 31 (AST/SGOT) Alanine Aminotransferase 58 50 (ALT/SGPT) Alkaline Phosphatase 68 59 Total Protein 7.9 7.5 Albumin 3.9 3.6 Urine Color YELLOW Urine Turbidity CLEAR Urine pH 5.5 Urine Specific Dorr 1.012 Urine Protein NEG Urine Glucose (UA) NEG Urine Ketones TRACE Urine Occult Blood NEG Urine Nitrite NEG Urine Bilirubin NEG Urine Urobilinogen LESS THAN 2.0 Urine Leukocyte Esterase NEG Urine RBC LESS THAN 1 Urine WBC 1 Urine Squamous Epithelial 1 Cells Urine Hyaline Casts 1 Urine Mucus FEW Microscopic Urinalysis Comment CATH-CULT NOT IND Direct Bilirubin 0.1 Indirect Bilirubin 0.2 Date/Time Procedure Status Source Growth 08/25/16 12:00 Aerobic Blood Culture Received Blood Peripheral Pending 08/25/16 12:00 Anaerobic Blood Culture Received Blood Peripheral Pending 08/25/16 11:50 Influenza Types A,B Antigen (JAIMEE) - Final Complete Nasal Aspirate Positive For Flu A Antigen Physical Exam Physical Exam GENERAL: This is a well-nourished, well-developed patient, in no apparent distress. SKIN: No rashes, ecchymoses or lesions. Cool and dry. Dry scab on lip HEAD: Atraumatic. Normocephalic. EYES: Extraocular motions intact. No scleral icterus. No injection or drainage. ENT: Airway patent. NECK: Trachea midline. Supple CARDIOVASCULAR: Regular rate and rhythm without murmurs, gallops, or rubs. RESPIRATORY: Patient noted with faint scattered ronchi, expiratory wheezes bibasally GASTROINTESTINAL: Abdomen soft, non-tender, nondistended. No hepato-splenomegaly , or palpable masses. No guarding. MUSCULOSKELETAL: Extremities without clubbing, cyanosis, or edema. No joint tenderness, effusion, or edema noted. No calf tenderness. Negative Homans sign bilaterally. NEUROLOGICAL: Awake and alert. Cranial nerves II through XII intact. Motor and sensory grossly within normal limits. Five out of 5 muscle strength in all muscle groups. Normal speech. A/P Assessment and Plan (1) COPD exacerbation (2) Influenza A (3) Fatty liver (4) Mast cell disease (5) Hypoxia (6) Failure of outpatient treatment (7) Hx of connective tissue disease Plan 71-year-old female admitted with ongoing cough and congestion, has had respiratory infection since May. Recently put on Cipro. Admitted with new coPD exacerbation, influenza, failure of outpatient therapy -Continue with empiric antibiotics, continue with Tamiflu -Follow cultures -Obtain sputum culture Consult pulmonology for evaluation -Continue with DuoNeb's Solu-Medrol 40 mg IV twice a day -Continue with Symbicort -Continue with IV fluids As the patient she had a staph on his sputum and was on Bactrim. Will keep her on the vancomycin pharmacy to dose. And follow-up sputum culture. Appreciate pulmonary input History of mast cell disorder Monitor for any allergic reaction Benadryl when necessary History of fatty liver, noted with mildly elevated liver enzymes -Repeat LFTs in the morning Home medications reviewed, initiated as indicated SCDs for DVT prophylaxis Plan of care discussed with the patient, and at bedside Further management of the patient will be dependent on the hospital course Erick Toro MD Aug 26, 2016 11:01
[2016-08-26] MEDS ORDERED: Vancomycin Consult Pharmacy 1 EA XX SCH (11:15)
[2016-08-26] MEDS: diphenhydrAMINE HCL 50 MG/ML VIAL IV PUSH PRN ×2 (12:01→18:15)
[2016-08-26] MEDS: methylPREDNISolone SOD SUCC 40 MG/1 ML VIAL IV SCH ×2 (12:02→23:09)
[2016-08-26] MEDS: cefTRIAXone INJ 1,000 MG in SODIUM CHLORIDE 0.9% INJ 100 ML IV SCH (12:02)
[2016-08-26] MEDS: VANCOMYCIN INJ 1,250 MG in SODIUM CHLOR 0.9% 250 ML INJ 250 ML IV SCH (14:21)
[2016-08-26] MEDS: AZITHROMYCIN INJ 500 MG in SODIUM CHLOR 0.9% 250 ML INJ 250 ML IV SCH (16:55)
[2016-08-26] MEDS ORDERED: TEMAZEPAM 15 MG CAP PO PRN (18:00)
[2016-08-26] MEDS ORDERED: POLYETHYLENE GLYCOL 17 GM PKG PO PRN (18:00)
[2016-08-26] MEDS: OSELTAMIVIR PHOSPHATE 75 MG CAP PO SCH (19:26)
[2016-08-27] VITALS (7 sets, daily range): BP systolic 131–162; BP diastolic 75–97; PULSE 83–91; RESP 18–22; TEMP 95.9–96.9; O2SAT 92–97
[2016-08-27] MEDS: HEPARIN SODIUM - SQ 10,000 UNITS/ML VIAL SQ SCH (03:07)
[2016-08-27] MEDS: SODIUM CHLOR 0.9% 1000 ML INJ 1,000 ML IV SCH (03:08)
[2016-08-27] MEDS: RESP: ALBUTEROL 2.5 MG/IPRATROPIUM 0.5 MG NEB (SCH) INH ×3 (03:47→19:45)
[2016-08-27] MEDS: OSELTAMIVIR PHOSPHATE 75 MG CAP PO SCH ×2 (08:23→21:18)
[2016-08-27] MEDS: ASPIRIN EC 81 MG TABEC PO SCH (08:23)
[2016-08-27] MEDS: NAPROXEN 250 MG TAB PO PRN ×2 (08:23→16:33)
[2016-08-27] MEDS: EZETIMIBE 10 MG TAB PO SCH (08:23)
[2016-08-27] MEDS: VANCOMYCIN INJ 1,250 MG in SODIUM CHLOR 0.9% 250 ML INJ 250 ML IV SCH (08:24)
[2016-08-27] MEDS: SODIUM CHLORIDE 0.9% FLUSH 5 ML FLUSH IV FLUSH SCH ×2 (08:24→21:14)
[2016-08-27] MEDS: BUDESONIDE-FORMOTEROL 160/4.5 MCG INHALER INH SCH ×2 (08:24→21:20)
--- NOTE | 2016-08-27 10:25 | HHI.PR ---
Subjective Remarks has less wheezing and less shortness of breath Cannot sleep after steroid. Sleeping medication did not help last night Some cough with very small amount of sputum No chest pain or diaphoresis No nausea vomiting Feeling some improvement from yesterday Review of system for 10 point system otherwise unremarkable Objective Objective Results - Vital Signs Date Time Temp Pulse Resp B/P Pulse Ox O2 Delivery O2 Flow Rate FiO2 08/27/16 08:00 96.6 89 18 149/97 92 08/27/16 00:00 96.9 87 22 137/78 94 08/26/16 21:29 95 08/26/16 20:00 97.5 84 22 110/82 96 08/26/16 16:00 97.6 90 18 139/85 94 08/26/16 12:00 96.4 87 18 131/68 93 I/O 08/26/16 08/26/16 08/26/16 08/27/16 08/27/16 08/27/16 07:00 15:00 23:00 07:00 15:00 23:00 Intake Total 1077 ml 1373 ml 818 ml 1494 ml Output Total 1600 ml 1200 ml 300 ml 1600 ml Balance -523 ml 173 ml 518 ml -106 ml Intake Oral 320 ml 800 ml 320 ml 480 ml IV Total 757 ml 573 ml 498 ml 1014 ml Output Urine Total 1600 ml 1200 ml 300 ml 1600 ml # Bowel Movements 0 0 0 0 Result Diagram: 08/25/16 1200 08/27/16 0522 Imaging Last Impressions Chest X-Ray 08/25/16 1154 Signed Impressions: Service Date/Time: Thursday, August 25, 2016 12:34 - CONCLUSION: Mild left base atelectasis. Darrel Fernandez MD Other Results Laboratory Tests Test 08/27/16 05:22 Creatinine 0.78 Estimat Glomerular Filtration 73 Rate Date/Time Procedure Status Source Growth 08/26/16 11:30 Gram Stain - Final Resulted Sputum Expectorated Sputum 08/26/16 11:30 Sputum Culture Resulted Sputum Expectorated Sputum Pending 08/25/16 12:00 Aerobic Blood Culture - Preliminary Resulted Blood Peripheral NO GROWTH IN 1 DAY 08/25/16 12:00 Anaerobic Blood Culture - Preliminary Resulted Blood Peripheral NO GROWTH IN 1 DAY 08/25/16 11:50 Influenza Types A,B Antigen (JAIMEE) - Final Complete Nasal Aspirate Positive For Flu A Antigen Physical Exam Physical Exam GENERAL: This is a well-nourished, well-developed patient, in no apparent distress. SKIN: No rashes, ecchymoses or lesions. Cool and dry. Dry scab on lip HEAD: Atraumatic. Normocephalic. EYES: Extraocular motions intact. No scleral icterus. No injection or drainage. ENT: Airway patent. NECK: Trachea midline. Supple CARDIOVASCULAR: Regular rate and rhythm without murmurs, gallops, or rubs. RESPIRATORY: Patient noted with occasional faint scattered ronchi, less expiratory wheezes bibasally GASTROINTESTINAL: Abdomen soft, non-tender, nondistended. No hepato-splenomegaly , or palpable masses. No guarding. MUSCULOSKELETAL: Extremities without clubbing, cyanosis, or edema. No joint tenderness, effusion, or edema noted. No calf tenderness. Negative Homans sign bilaterally. NEUROLOGICAL: Awake and alert. Cranial nerves II through XII intact. Motor and sensory grossly within normal limits. Five out of 5 muscle strength in all muscle groups. Normal speech. A/P Assessment and Plan (1) COPD exacerbation (2) Influenza A (3) Fatty liver (4) Mast cell disease (5) Hypoxia (6) Failure of outpatient treatment (7) Hx of connective tissue disease Plan 71-year-old female admitted with ongoing cough and congestion, has had respiratory infection since May. Recently put on Cipro. Admitted with new coPD exacerbation, influenza, failure of outpatient therapy -Continue with empiric antibiotics, continue with Tamiflu -Follow cultures so far negative -Obtain sputum culture pending Appreciate consultation by pulmonology for evaluation -Continue with DuoNeb's Solu-Medrol 40 mg IV will decrease to once a day -Continue with Symbicort -Continue with IV fluids As the patient she had a staph on his sputum and was on Bactrim. Will keep her on the vancomycin pharmacy to dose. And follow-up sputum culture. Appreciate pulmonary input History of mast cell disorder Monitor for any allergic reaction Benadryl when necessary History of fatty liver, noted with mildly elevated liver enzymes -Repeat LFTs better Will give different medication for insomnia Home medications reviewed, initiated as indicated SCDs for DVT prophylaxis Plan of care discussed with the patient Discussed with RN Further management of the patient will be dependent on the hospital course Erick Toro MD Aug 27, 2016 10:25
[2016-08-27] MEDS ORDERED: ZOLPIDEM TARTRATE 5 MG TAB PO PRN (10:30)
[2016-08-27] MEDS: cefTRIAXone INJ 1,000 MG in SODIUM CHLORIDE 0.9% INJ 100 ML IV SCH (13:59)
[2016-08-27] MEDS: AZITHROMYCIN INJ 500 MG in SODIUM CHLOR 0.9% 250 ML INJ 250 ML IV SCH (16:00)
[2016-08-28] MEDS: VANCOMYCIN INJ 1,250 MG in SODIUM CHLOR 0.9% 250 ML INJ 250 ML IV SCH (00:29)
[2016-08-28] MEDS ORDERED: PHARMACY ORDERED LAB XX ONE (01:45)
[2016-08-28] MEDS: RESP: ALBUTEROL 2.5 MG/IPRATROPIUM 0.5 MG NEB (SCH) INH ×2 (07:47→16:07)
[2016-08-28 08:00] VITALS: BP 163/86; PULSE 78; RESP 17; TEMP 98.1; O2SAT 95
[2016-08-28] MEDS: ASPIRIN EC 81 MG TABEC PO SCH (08:37)
[2016-08-28] MEDS: EZETIMIBE 10 MG TAB PO SCH (08:39)
[2016-08-28] MEDS: OSELTAMIVIR PHOSPHATE 75 MG CAP PO SCH (08:39)
[2016-08-28] MEDS: SODIUM CHLORIDE 0.9% FLUSH 5 ML FLUSH IV FLUSH SCH (08:40)
[2016-08-28] MEDS: BUDESONIDE-FORMOTEROL 160/4.5 MCG INHALER INH SCH (08:40)
[2016-08-28] MEDS ORDERED: methylPREDNISolone SOD SUCC 40 MG/1 ML VIAL IV SCH (09:00)
[2016-08-28] MEDS ORDERED: HEPARIN SODIUM - SQ 10,000 UNITS/ML VIAL SQ SCH (09:00)
[2016-08-28] MEDS ORDERED: predniSONE 20 MG TAB PO SCH (09:00)
[2016-08-28] MEDS ORDERED: VANCOMYCIN INJ 1,250 MG in SODIUM CHLOR 0.9% 250 ML INJ 250 ML IV SCH (10:00)
[2016-08-28] MEDS: ONDANSETRON HCL 4 MG/2 ML VIAL IV PUSH PRN (10:02)
[2016-08-28 12:00] VITALS: BP 136/81; PULSE 69; RESP 17; TEMP 98.5; O2SAT 93
[2016-08-28] MEDS: cefTRIAXone INJ 1,000 MG in SODIUM CHLORIDE 0.9% INJ 100 ML IV SCH (13:00)
--- NOTE | 2016-08-28 15:44 | HHI.PR ---
Subjective Remarks Voice clear, less hoarse Up in chair Alert Feeling much better Appetite fair to good (Roxana Stuart) Objective Objective Results - Vital Signs Date Time Temp Pulse Resp B/P Pulse Ox O2 Delivery O2 Flow Rate FiO2 08/28/16 12:00 98.5 69 17 136/81 93 08/28/16 08:00 98.1 78 17 163/86 95 08/27/16 20:00 96.7 83 20 162/92 94 08/27/16 19:48 97 Nasal Cannula 08/27/16 16:00 95.9 85 20 131/75 92 I/O 08/27/16 08/27/16 08/27/16 08/28/16 08/28/16 08/28/16 07:00 15:00 23:00 07:00 15:00 23:00 Intake Total 1494 ml 1464 ml 240 ml 120 ml 480 ml Output Total 1600 ml 700 ml 650 ml Balance -106 ml 764 ml 240 ml 120 ml -170 ml Intake Oral 480 ml 720 ml 240 ml 120 ml 480 ml IV Total 1014 ml 744 ml Output Urine Total 1600 ml 700 ml 650 ml # Voids 2 2 2 # Bowel Movements 0 2 0 0 0 (Roxana Stuart) Result Diagram: 08/25/16 1200 08/27/16 0522 ROS General: Fatigue (improving, she is moving around in the room), Other (10 point ROS done positives noted some cough shortness of breath and weakness which is all improving. Other systems negative or unremarkable) Pulmonary: Cough (occasional), SOB (with extreme activity, resolving) (Roxana Stuart) Physical Exam Physical Exam PHYSICAL EXAMINATION GENERAL: This is a well-developed, well-nourished female who appears to be in no acute distress. She is alert and awake, responsive. HEAD: Normocephalic without any lesion or mass noted. Facial features appear symmetric. OROPHARYNGEAL: Oropharynx without erythema or edema. NECK: Supple. No nuchal rigidity or lymphadenopathy. Trachea midline without deviation. CARDIAC: Regular rhythm, regular rate, S1 and S2 are heard. Murmur none; no gallops or rubs. LUNGS: Decreased breath sounds especially in the right lower lobe . Anterior and upper landis clear , no wheeze, no rhonchi or rale. No use of accessory muscles on inspiration or expiration. ABDOMEN: Soft, nontender, no organomegaly or masses. Bowel sounds are heard in all four quadrants. No rebound. No guarding. EXTREMITIES: No edema. Pulses equal bilateral. no cyanosis. Up in chair NEUROLOGICAL: Patient mood and affect appropriate. No focal deficit SKIN:Warm and moist Objective Remarks On feeling much better today I'm very much hoping to go home (Roxana Stuart) A/P Assessment and Plan 71-year-old female admitted with ongoing cough and congestion, has had respiratory infection since May. Recently put on Cipro. Admitted with new coPD exacerbation, influenza, failure of outpatient therapy -Continue with empiric antibiotics, continue with Tamiflu, flu positive -Follow cultures so far negative -Obtain sputum culture staph Appreciate consultation by pulmonology for evaluation -Continue with DuoNeb's Solu-Medrol 40 mg IV will decrease to once a day -Continue with Symbicort -Continue with IV fluids As the patient she had a staph on his sputum and was on Bactrim. Will keep her on the vancomycin pharmacy to dose. And follow-up sputum culture. Appreciate pulmonary input Off improving, no shortness of breath noted. Debility and generalized weakness resolving. Patient is able to speak without hoarseness today History of mast cell disorder Monitor for any allergic reaction Benadryl when necessary History of fatty liver, noted with mildly elevated liver enzymes -Repeat LFTs better Will give different medication for insomnia Home medications reviewed, initiated as indicated SCDs for DVT prophylaxis Plan of care discussed with the patient Patient and are in room and are very much hoping to discharge today. Dr. Umana will see. We'll need to evaluate outpatient medicines if she discharges Discharge Planning Home with Discussed With: Nurse, Family (patient and her ), Other (Dr. umana, patient seen on her behalf) (Roxana Stuart) Assessment and Plan patient seen and examined feeling much better anxious to go home po tamiflu for 2 more days switch to po ceftin cough suppressants follow up with Dr richardson in 2 weeks for repeat sputum culture ok to d/c home discussed with patient / at bedside discussed with Roxana PINEDA (Sarahy Umana MD) Roxana Stuart Aug 28, 2016 15:44 Sarahy Umana MD Aug 28, 2016 16:36
[2016-08-28 16:07] VITALS: O2SAT 93
[2016-08-28] MEDS ORDERED: CEFT500T3 PO (16:23)
[2016-08-28] MEDS ORDERED: OSEL75 PO (16:23)
--- NOTE | 2016-08-28 18:37 | HHI.DS ---
Discharge Summary Admission Date Aug 25, 2016 at 13:24 Discharge Date: Aug 28, 2016 Admitting Diagnosis copd exacerbation, influenza A (1) COPD exacerbation Diagnosis: Principal (2) Influenza A Diagnosis: Principal (3) Fatty liver Diagnosis: Secondary (4) Mast cell disease Diagnosis: Secondary (5) Hypoxia Diagnosis: Principal (6) Failure of outpatient treatment Diagnosis: Principal (7) Hx of connective tissue disease Diagnosis: Secondary Brief History This was a 71-year-old female with history of mast cell disorder, fatty liver, mixed connective tissue disorder, COPD. Patient presented to the emergency room with complaints of ongoing cough and congestion and respiratory infection that has been treated since May 2016. According to the patient she started feeling in May, had been on 2-3 different antibiotics as well as oral steroids. She went to see her handle maker Dr. Church who did a sputum culture and results showed that she was growing staph therefore she was placed on Bactrim. Apparently she had some type of reaction that was in the form of a rash so she was switched to Cipro. She had 3 doses of the medication up to now. Indicates that day before admission she spiked a fever up to 102, she's had a headache, chills. She's had a cough but very little sputum. She called her handle maker who instructed her to come to the emergency room. Patient complained of generalized body aches, no chest pain, no diarrhea, no abdominal pain. She had been taking probiotics. She's not on any oxygen at home, uses inhalers. CBC/BMP: 08/25/16 1200 08/27/16 0522 Significant Findings Laboratory Tests Test 08/26/16 08/27/16 05:05 05:22 Chloride Level 111 MEQ/L (98-107) Estimat Glomerular Filtration 66 ML/MIN (>89) 73 ML/MIN (>89) Rate Random Glucose 155 MG/DL (74-106) PE at Discharge GENERAL: This was a well-developed, well-nourished female who appeared to be in no acute distress. She was alert and awake, responsive. HEAD: Normocephalic without any lesion or mass noted. Facial features appear symmetric. OROPHARYNGEAL: Oropharynx without erythema or edema. NECK: Supple. No nuchal rigidity or lymphadenopathy. Trachea midline without deviation. CARDIAC: Regular rhythm, regular rate, S1 and S2 are heard. Murmur none; no gallops or rubs. LUNGS: Decreased breath sounds especially in the right lower lobe . Anterior and upper landis clear , no wheeze, no rhonchi or rale. No use of accessory muscles on inspiration or expiration. ABDOMEN: Soft, nontender, no organomegaly or masses. Bowel sounds are heard in all four quadrants. No rebound. No guarding. EXTREMITIES: No edema. Pulses equal bilateral. no cyanosis. Up in chair NEUROLOGICAL: Patient mood and affect appropriate. No focal deficit SKIN:Warm and moist Objective Remarks On feeling much better today I'm very much hoping to go home Hospital Course Patient presented to the emergency room, laboratory workup was completed, unremarkable. She was noted slightly tachycardic, no fever. Blood pressure stable. Sats were 89% on room air. Cultures were obtained, patient was noted positive for influenza type A. She was started on empiric antibiotics. She was given DuoNeb's and Solu-Medrol. IV fluids have been started. Patient is admitted for further evaluation and treatment Patient's diagnosis listed at the top of the page were the primary and secondary things used for her treatment plan during her hospital stay. -Continue with empiric antibiotics, continue with Tamiflu, flu positive Patient was-Followed with cultures so far negative -Obtain sputum culture which was positive for staph Appreciate consultation by pulmonology for evaluation -Continue with DuoNeb's throughout hospital stay Solu-Medrol 40 mg IV will decrease to once a day -Continue with Symbicort -Continue with IV fluids As the patient she had a staph on his sputum and was on Bactrim. Will keep her on the vancomycin pharmacy to dose. And follow-up sputum culture. Appreciate pulmonary input Off improving, no shortness of breath noted. Debility and generalized weakness resolving. Patient was able to speak without hoarseness today History of mast cell disorder Monitor for any allergic reaction Benadryl when necessary History of fatty liver, noted with mildly elevated liver enzymes -Repeat LFTs better. We will monitor. Will give different medication for insomnia Home medications reviewed, initiated as indicated SCDs for DVT prophylaxis Plan of care discussed with the patient Assessment , 08/28/16 , Patient and are in room and are very much hoping to discharge today. Dr. Mccord will see. We'll need to evaluate outpatient medicines if she discharges Discharge Planning Home with Discussed With: Nurse, Family (patient and her ), Other (Dr. mccord, patient seen on her behalf) Assessment and Plan or Dr. Mccord patient seen and examined feeling much better anxious to go home po tamiflu for 2 more days switch to po ceftin cough suppressants follow up with Dr church in 2 weeks for repeat sputum culture ok to d/c home discussed with patient / at bedside discussed with Roxana PINEDA Pt Condition on Discharge: Stable Discharge Disposition: Discharge Home Discharge Instructions DIET: Follow Instructions for: As Tolerated, No Restrictions Activities you can perform: Regular-No Restrictions Roxana Stuart Aug 28, 2016 18:37
[2016-08-29] MEDS ORDERED: PHARMACY ORDERED LAB XX ONE (20:45)
== END 2016-08-28 17:13 | disposition home or self-care (01) | DRG 191 ==
LOC: NEPA 11:33 → NEDA 13:24 → N07B 15:18
PROVIDERS: ADMIT Specialist; ATTEND Specialist
DX: J44.1 Chronic obstructive pulmonary disease with (acute) exacerbation (principal); J98.11 Atelectasis; K76.0 Fatty (change of) liver, not elsewhere classified; J10.1 Influenza due to other identified influenza virus with other respiratory manifestations; R09.02 Hypoxemia; R00.0 Tachycardia, unspecified; G47.00 Insomnia, unspecified; Z87.891 Personal history of nicotine dependence; I25.10 Atherosclerotic heart disease of native coronary artery without angina pectoris; J45.909 Unspecified asthma, uncomplicated; Z85.79 Personal history of other malignant neoplasms of lymphoid, hematopoietic and related tissues
CPT/HCPCS: 71020; 80048; 80053; 80076; 81001; 82565; 83605; 83735; 84100; 85025; 85610; 85730; 87040; 87070; 87205; 87804; 94620; 94640; 94664; 96365; 96375; J0456; J0696; J1200; J1644; J2405; J2920; J2930; J3370; J7030; J7040; J7050; J7512

== ENCOUNTER → 2016-11-27 | Outpatient (CLI) | payer MEDICARE ==
[~2016-11-27] MED LIST changes: +ASPI1TAB69 PO; +CEFT500T3 PO; +COQ-30CA2; +OSEL75 PO; +VALT1TAB PO; +ZETI10TA5 PO
[2016-11-27 08:58] LABS: BASOPHIL % 0.9 % (0.0-2.0); EOSINOPHIL # 0.1 TH/MM3 (0-0.4); EOSINOPHIL % 1.8 % (0.0-4.0); HEMATOCRIT 42.8 % (35.0-46.0); HEMO FLAGS DIFF FINAL; LYMPH % 33.7 % (9.0-44.0); LYMPHOCYTE # 1.8 TH/MM3 (1.0-4.8); MEAN CELL VOLUME 91.1 FL (80.0-100.0); MEAN CORPUSCULAR HEMOGLOBIN 30.3 PG (27.0-34.0); MEAN CORPUSCULAR HGB CONC 33.3 % (32.0-36.0); MONO % 8.1 % (0.0-8.0); NEUT % 55.5 % (16.0-70.0); PLATELET COUNT 222 TH/MM3 (150-450); RED CELL DISTRIBUTION WIDTH 13.9 % (11.6-17.2); WHITE BLOOD COUNT 5.4 TH/MM3 (4.0-11.0)
[2016-11-27 09:42] LABS: WESTERGREN SEDIMENTATION RATE 8 mm/hr (0-30)
[2016-11-27 09:51] LABS: ALKALINE PHOSPHATASE 61 U/L (45-117); ALT (GPT) 42 U/L (10-53); ANION GAP 9 MEQ/L (5-15); AST (GOT) 27 U/L (15-37); BICARBONATE 26.2 MEQ/L (21.0-32.0); BLOOD UREA NITROGEN 16 MG/DL (7-18); CHLORIDE 104 MEQ/L (98-107); FERRITIN 153 NG/ML (8-252); GLOMERULAR FILTRATION RATE 66 ML/MIN (>89); GLUCOSE,FASTING 88 MG/DL (74-99); HDL CHOLESTEROL 64.1 MG/DL (40.0-60.0); LDL CHOLESTEROL 121 MG/DL (0-99); LDL CHOLESTEROL DIRECT 122 MG/DL (0-99); POTASSIUM 3.7 MEQ/L (3.5-5.1); SODIUM (NA) 139 MEQ/L (136-145); TOTAL BILIRUBIN ADULT 0.7 MG/DL (0.2-1.0); TRANSFERRIN IRON PROFILE 254 MG/DL (200-360)
[2016-11-28 08:48] LABS: IMMUNOGLOBULIN G 1690 MG/DL (650-1610)
[2016-11-28 09:18] LABS: IMMUNOGLOBULIN A 45 MG/DL (90-497); IMMUNOGLOBULIN M 33 MG/DL (42-255); KAPPA LAMBDA RATIO 7.91 (1.57-3.93); LAMBDA LIGHT CHAIN 79 MG/DL (90-210)
[2016-11-28 13:07] LABS: ANA SCREEN POS (NEG)
[2016-11-28 15:25] LABS: TRYPTASE 18.7 ng/mL (<11.5)
[2016-11-28 21:49] LABS: ALBUMIN SPE 4.75 GM/DL (3.50-5.00); ALPHA 1 GLOBULIN 0.22 GM/DL (0.11-0.29); ALPHA 2 GLOBULIN 0.83 GM/DL (0.22-1.00)
[2016-11-28 21:50] LABS: BETA GLOBULINS (SPE) 0.73 GM/DL (0.53-1.03)
[2016-11-29 03:52] LABS: KAPPA/LAMBDA FREE 2.62 (0.26-1.65)
== END ==
LOC: ELAB 07:08
PROVIDERS: ATTEND Internal Medicine Hematology & Oncology
DX: E78.2 Mixed hyperlipidemia (principal); R53.83 Other fatigue; D47.2 Monoclonal gammopathy; R76.8 Other specified abnormal immunological findings in serum; Q82.0 Hereditary lymphedema; Q21.1 Atrial septal defect; Q82.2 Congenital cutaneous mastocytosis; M35.9 Systemic involvement of connective tissue, unspecified; I25.10 Atherosclerotic heart disease of native coronary artery without angina pectoris; R03.0 Elevated blood-pressure reading, without diagnosis of hypertension; E66.3 Overweight; Z86.39 Personal history of other endocrine, nutritional and metabolic disease
CPT/HCPCS: 36415; 80053; 80061; 82728; 82784; 83520; 83540; 83550; 83721; 83883; 84165; 85025; 85652; 86038; 86039; 86140; 86334

== ENCOUNTER → 2017-05-07 | Outpatient (CLI) | payer MEDICARE ==
[2017-05-07 12:57] LABS: CHOLESTEROL/ HDL RATIO 3.35 RATIO
== END ==
LOC: ELAB 09:19
PROVIDERS: ATTEND Internal Medicine Interventional Cardiology
DX: E78.2 Mixed hyperlipidemia (principal); I25.10 Atherosclerotic heart disease of native coronary artery without angina pectoris; R03.0 Elevated blood-pressure reading, without diagnosis of hypertension; E66.3 Overweight
CPT/HCPCS: 36415; 80061; 83721; 84450; 84460

== ENCOUNTER → 2017-06-12 | Outpatient (CLI) | payer MEDICARE ==
[~2017-06-12] MED LIST changes: +EZET10 PO; -ZETI10TA5 PO
[2017-06-12 12:07] LABS: AUTOMATED NEUTROPHIL # 3.3 TH/MM3 (1.8-7.7); BASOPHIL % 0.9 % (0.0-2.0); BLOOD UREA NITROGEN 16 MG/DL (7-18); CHLORIDE 107 MEQ/L (98-107); EOSINOPHIL # 0.1 TH/MM3 (0-0.4); EOSINOPHIL % 1.6 % (0.0-4.0); HEMO FLAGS DIFF FINAL; LYMPH % 31.5 % (9.0-44.0); LYMPHOCYTE # 1.8 TH/MM3 (1.0-4.8); MEAN CELL VOLUME 91.5 FL (80.0-100.0); MEAN CORPUSCULAR HEMOGLOBIN 31.7 PG (27.0-34.0); MEAN CORPUSCULAR HGB CONC 34.6 % (32.0-36.0); MONO % 7.1 % (0.0-8.0); NEUT % 58.9 % (16.0-70.0); PLATELET COUNT 208 TH/MM3 (150-450); RED BLOOD COUNT 4.48 MIL/MM3 (4.00-5.30); RED CELL DISTRIBUTION WIDTH 14.2 % (11.6-17.2); SODIUM (NA) 140 MEQ/L (136-145); WHITE BLOOD COUNT 5.6 TH/MM3 (4.0-11.0)
[2017-06-12 12:23] LABS: ALKALINE PHOSPHATASE 62 U/L (45-117); ALT (GPT) 39 U/L (10-53); ANION GAP 7 MEQ/L (5-15); AST (GOT) 23 U/L (15-37); BICARBONATE 25.9 MEQ/L (21.0-32.0); GLOMERULAR FILTRATION RATE 87 ML/MIN (>89); GLUCOSE,FASTING 89 MG/DL (74-99); IMMUNOGLOBULIN A 45 MG/DL (90-497); IMMUNOGLOBULIN G 1720 MG/DL (650-1610); IMMUNOGLOBULIN M 36 MG/DL (42-255); KAPPA LAMBDA RATIO 7.54 (1.57-3.93); LAMBDA LIGHT CHAIN 81 MG/DL (90-210); TOTAL BILIRUBIN ADULT 0.8 MG/DL (0.2-1.0)
[2017-06-13 18:14] LABS: TOTAL PROTEIN SPE 8.1 GM/DL (6.0-7.6)
[2017-06-13 22:15] LABS: ALBUMIN SPE 4.62 GM/DL (3.50-5.00); ALPHA 1 GLOBULIN 0.22 GM/DL (0.11-0.29); ALPHA 2 GLOBULIN 0.83 GM/DL (0.22-1.00); BETA GLOBULINS (SPE) 0.7 GM/DL (0.53-1.03)
[2017-06-14 03:51] LABS: KAPPA/LAMBDA FREE 2.84 (0.26-1.65)
== END ==
LOC: ELAB 09:31
PROVIDERS: ATTEND Internal Medicine Hematology & Oncology
DX: Q21.1 Atrial septal defect (principal); Q82.2 Congenital cutaneous mastocytosis; D47.2 Monoclonal gammopathy; R53.83 Other fatigue
CPT/HCPCS: 36415; 80053; 82232; 82784; 83883; 84165; 85025; 86334

== ENCOUNTER → 2017-12-16 | Outpatient (CLI) | payer MEDICARE ==
[2017-12-16 10:35] LABS: AUTOMATED NEUTROPHIL # 3.3 TH/MM3 (1.8-7.7); BASOPHIL % 0.7 % (0.0-2.0); EOSINOPHIL # 0.1 TH/MM3 (0-0.4); HEMATOCRIT 42.3 % (35.0-46.0); HEMOGLOBIN 14.5 GM/DL (11.6-15.3); LYMPH % 32.2 % (9.0-44.0); LYMPHOCYTE # 1.9 TH/MM3 (1.0-4.8); MEAN CELL VOLUME 91.8 FL (80.0-100.0); MEAN CORPUSCULAR HEMOGLOBIN 31.5 PG (27.0-34.0); MEAN CORPUSCULAR HGB CONC 34.3 % (32.0-36.0); MEAN PLATELET VOLUME 8.7 FL (7.0-11.0); MONO % 8.7 % (0.0-8.0); MONOCYTE # 0.5 TH/MM3 (0-0.9); NEUT % 56.4 % (16.0-70.0); PLATELET COUNT 224 TH/MM3 (150-450); RED BLOOD COUNT 4.61 MIL/MM3 (4.00-5.30); RED CELL DISTRIBUTION WIDTH 13.8 % (11.6-17.2); WHITE BLOOD COUNT 5.8 TH/MM3 (4.0-11.0)
[2017-12-16 10:41] LABS: BICARBONATE 25.6 MEQ/L (21.0-32.0); BLOOD UREA NITROGEN 15 MG/DL (7-18); CALCIUM 8.9 MG/DL (8.5-10.1); CHLORIDE 108 MEQ/L (98-107); GLUCOSE,FASTING 95 MG/DL (74-99); SODIUM (NA) 141 MEQ/L (136-145)
[2017-12-16 10:55] LABS: ALKALINE PHOSPHATASE 55 U/L (45-117); ALT (GPT) 53 U/L (10-53); AST (GOT) 38 U/L (15-37); CREATININE 0.81 MG/DL (0.50-1.00); GLOMERULAR FILTRATION RATE 70 ML/MIN (>89); IMMUNOGLOBULIN A 44 MG/DL (90-497); IMMUNOGLOBULIN G 1670 MG/DL (650-1610); IMMUNOGLOBULIN M 38 MG/DL (42-255); KAPPA LAMBDA RATIO 8.83 (1.57-3.93); KAPPA LIGHT CHAIN 618 MG/DL (170-370); LAMBDA LIGHT CHAIN 70 MG/DL (90-210); TOTAL BILIRUBIN ADULT 0.7 MG/DL (0.2-1.0); TOTAL PROTEIN 8.3 GM/DL (6.4-8.2)
[2017-12-16 21:51] LABS: ALB/GLOB RATIO (SPE) 1.56 (1.39-2.23)
[2017-12-18 11:16] LABS: CHOLESTEROL/ HDL RATIO 3.56 RATIO; HDL CHOLESTEROL 63.6 MG/DL (40.0-60.0)
[2017-12-18 19:54] LABS: KAPPA/LAMBDA FREE 2.38 (0.26-1.65)
== END ==
LOC: ELAB 07:39
PROVIDERS: ATTEND Internal Medicine Hematology & Oncology
DX: Q21.1 Atrial septal defect (principal); Q82.2 Congenital cutaneous mastocytosis; D47.2 Monoclonal gammopathy
CPT/HCPCS: 36415; 80053; 80061; 82784; 83520; 83721; 83883; 84165; 85025; 86334